=== PATIENT | male | born 1990 | race Two or more races ===

== ENCOUNTER 2017-09-20 23:11 | Emergency (ER) | payer MEDICARE, MEDICAID ==
[~2017-09-20] VITALS: Ht 157.5 cm; Wt 49.5 kg
[~2017-09-20 23:11] MED LIST: CITA10TA9 PO; OXYB5TAB82 PO; TOP25T PO
[2017-09-21] MEDS ORDERED: normal saline 1000ML IV soln IVB ONE (00:25)
[2017-09-21] MEDS ORDERED: metoclopramide 5 mg/ml inj IV ONE (00:25)
[2017-09-21 02:08] VITALS: BP 101/63
== END 2017-09-21 02:37 | disposition home or self-care (01) ==
LOC: ER 23:11
DX: R51 Headache (principal); R11.10 Vomiting, unspecified; H53.8 Other visual disturbances; Z98.2 Presence of cerebrospinal fluid drainage device; Z98.890 Other specified postprocedural states; Z88.6 Allergy status to analgesic agent; Z91.040 Latex allergy status
CPT/HCPCS: 70450; 96361; 96374; 99284; J2765; J7030

== ENCOUNTER 2018-11-27 10:32 | Emergency (ER) | payer MEDICARE, MEDICAID ==
[~2018-11-27] VITALS: Ht 157.5 cm; Wt 50.0 kg
[2018-11-27] MEDS ORDERED: proCHLORperazine 10 MG/2 ml inj IV ONE (14:15)
[2018-11-27] MEDS ORDERED: normal saline 1000ML IV soln IVB ONE (14:15)
[2018-11-27] MEDS ORDERED: LORazepam 2 mg/ml vial IV ONE (14:15)
[2018-11-27] MEDS ORDERED: ondansetron/PF 4mg/2ml inj IV ONE (14:15)
[2018-11-27 14:40] LABS: BASOPHILS % (AUTO) 1.1 % (0-1); EOSINOPHILS # (AUTO) 0.2 X10'3 (0-0.9); EOSINOPHILS % (AUTO) 4.3 % (0-6); HEMATOCRIT 42.3 % (42.0-52.0); HEMOGLOBIN 13.5 g/dl (14.0-17.9); LYMPHOCYTES # (AUTO) 1.7 X10'3 (1.1-4.8); LYMPHOCYTES % (AUTO) 37.4 % (21-51); MEAN CORPUSCULAR HEMOGLOBIN 22.4 PG (27.0-31.0); MEAN CORPUSCULAR VOLUME 70.1 FL (78-98); MEAN PLATELET VOLUME 7.6 FL (7.4-10.4); MONOCYTES # (AUTO) 0.6 X10'3 (0-0.9); MONOCYTES % (AUTO) 12.3 % (2-12); NEUTROPHILS % (AUTO) 44.9 % (42-75); PLATELET COUNT 340 X10'3 (140-440); RED BLOOD COUNT 6.04 X10'6 (4.70-6.10); WHITE BLOOD COUNT 4.5 X10'3 (4.5-11.0)
[2018-11-27 15:01] LABS: ANISOCYTOSIS 2+; ELLIPTOCYTES 1+; HYPOCHROMASIA 2+; MICROCYTOSIS 2+; PLATELET ESTIMATE NORMAL
[2018-11-27 15:08] LABS: ALANINE AMINOTRANSFERASE 15 U/L (12-78); ALBUMIN 3.9 G/DL (3.4-5.0); ALBUMIN/GLOBULIN RATIO 0.9 (1.1-1.5); ALKALINE PHOSPHATASE 99 IU/L (46-116); ANION GAP 11 (8-16); ASPARTATE AMINO TRANSFERASE 16 U/L (10-37); BILIRUBIN,TOTAL 0.4 MG/DL (0.1-1.0); BLOOD UREA NITROGEN 13 MG/DL (7-18); BUN/CREATININE RATIO 22.4 (5.4-32.0); CALCIUM 9.3 MG/DL (8.5-10.1); CHLORIDE 106 MMOL/L (99-107); CREATININE 0.58 MG/DL (0.60-1.10); GLUCOSE 83 MG/DL (70-104); POTASSIUM 3.8 MMOL/L (3.5-5.1); SODIUM 142 MMOL/L (135-145); TOTAL CARBON DIOXIDE 25.3 MMOL/L (24-32); TOTAL PROTEIN 8.1 G/DL (6.4-8.2); eGFR > 90 ML/MIN
[2018-11-27 15:11] LABS: ACETAMINOPHEN < 2.0 UG/ML (10-30)
[2018-11-27 17:03] LABS: URINE AMPHETAMINE SCREEN NEGATIVE (Neg); URINE BARBITUATE SCREEN NEGATIVE (Neg); URINE BENZODIAZEPINES SCREEN NEGATIVE (Neg); URINE CANNABINOID SCREEN NEGATIVE (Neg); URINE COCAINE SCREEN NEGATIVE (Neg); URINE METHADONE SCREEN NEGATIVE (Neg); URINE OPIATE SCREEN POSITIVE (Neg); URINE PHENCYCLIDINE SCREEN NEGATIVE (Neg)
[2018-11-27] MEDS ORDERED: TRAM50TA2 PO (18:28)
[2018-11-27] MEDS ORDERED: ONDA4TAB6 PO (18:28)
[2018-11-27 20:15] VITALS: BP 118/76
== END 2018-11-27 20:18 | disposition home or self-care (01) ==
LOC: ER 10:33
DX: R51 Headache (principal); Z88.6 Allergy status to analgesic agent; Z91.040 Latex allergy status
CPT/HCPCS: 36415; 70450; 80053; 80305; 80329; 85025; 96374; 96375; 99284; J0780; J2060; J2405

== ENCOUNTER 2019-09-23 10:00 | Emergency (ER) | payer MEDICARE, MEDICAID ==
[~2019-09-23] VITALS: Ht 152.4 cm; Wt 47.4 kg
[~2019-09-23 10:00] MED LIST changes: +ONDA4TAB6 PO
[2019-09-23] MEDS ORDERED: ketorolac tromethamine 15mg/ml inj. IV ONE (11:25)
[2019-09-23] MEDS ORDERED: proCHLORperazine 10 MG/2 ml inj IV ONE (11:25)
[2019-09-23] MEDS ORDERED: diphenhydrAMINE 50 mg/ml inj IV ONE (11:25)
[2019-09-23] MEDS ORDERED: normal saline 1000ml 1,000 ML IV ONE (11:25)
[2019-09-23 14:47] VITALS: BP 105/60
== END 2019-09-23 14:48 | disposition home or self-care (01) ==
LOC: ER 10:01
DX: R51 Headache (principal); M54.2 Cervicalgia; H53.149 Visual discomfort, unspecified; Z98.890 Other specified postprocedural states; Z88.6 Allergy status to analgesic agent; Z88.5 Allergy status to narcotic agent; Z91.040 Latex allergy status; Z79.899 Other long term (current) drug therapy
CPT/HCPCS: 70450; 71045; 74018; 96374; 96375; 99284; J0780; J1200; J1885; J7030

== ENCOUNTER 2023-09-01 06:56 | Day surgery (SDC) | payer MEDICARE, MEDICAID ==
[2023-08-29 16:08] LABS: BASOPHILS # (AUTO) 0.1 X10'3 (0-0.2); EOSINOPHILS # (AUTO) 0.4 X10'3 (0-0.9); EOSINOPHILS % (AUTO) 5.9 % (0-6); HEMATOCRIT 38.6 % (42.0-52.0); HEMOGLOBIN 12.5 g/dl (14.0-17.9); LYMPHOCYTES % (AUTO) 29.7 % (21-51); MEAN CORPUSCULAR HEMOGLOBIN 24.8 PG (27.0-31.0); MEAN CORPUSCULAR HGB CONC 32.3 g/dL (33.0-36.5); MEAN CORPUSCULAR VOLUME 76.7 FL (78-98); MEAN PLATELET VOLUME 7.1 FL (7.4-10.4); MONOCYTES # (AUTO) 0.7 X10'3 (0-0.9); NEUTROPHILS # (AUTO) 3.5 X10'3 (1.8-7.7); NEUTROPHILS % (AUTO) 52.4 % (42-75); PLATELET COUNT 400 X10'3 (140-440); RED BLOOD COUNT 5.03 X10'6 (4.70-6.10); WHITE BLOOD COUNT 6.6 X10'3 (4.5-11.0)
[2023-08-29 16:22] LABS: ALANINE AMINOTRANSFERASE 29 U/L (12-78); ALBUMIN 3.8 G/DL (3.4-5.0); ALBUMIN/GLOBULIN RATIO 0.9 (1.1-1.5); ALKALINE PHOSPHATASE 117 IU/L (46-116); ANION GAP 9 (8-16); ASPARTATE AMINO TRANSFERASE 20 U/L (10-37); BILIRUBIN,TOTAL 0.2 MG/DL (0.1-1.0); BLOOD UREA NITROGEN 16 MG/DL (7-18); CHLORIDE 104 MMOL/L (99-107); GLUCOSE 88 MG/DL (70-104); POTASSIUM 3.7 MMOL/L (3.5-5.1); SODIUM 142 MMOL/L (135-145); TOTAL CARBON DIOXIDE 29.1 MMOL/L (24-32); TOTAL PROTEIN 8.2 G/DL (6.4-8.2); eCRCL 164 ML/MIN; eGFR > 90 ML/MIN
[~2023-09-01] VITALS: Ht 157.5 cm; Wt 98.0 kg
[2023-09-01] VITALS (8 sets, daily range): BP systolic 104–124; BP diastolic 47–90; PULSE 80–108; RESP 16–18; TEMP 98.1; O2SAT 98–100
[~2023-09-01 06:56] MED LIST changes: +CHOL20002 PO; -CITA10TA9 PO; +ERTA1VIA4 IV; +ESCI5TAB PO; +GABA300C PO; -ONDA4TAB6 PO; +OXYB5TAB16 PO; -OXYB5TAB82 PO; -TOP25T PO; +VANC1VIA38 IV; +cefazolin 2gm/D5W 100mL 100 ML IV ONE; +famotidine 20mg tablet PO ONE; +ringers solution, lacted 1,000 ML IV SCH
[2023-09-01] MEDS ORDERED: ondansetron/PF 4mg/2ml inj IV PRN (09:40)
[2023-09-01] MEDS ORDERED: labetalol 20mg/4ml (5mg/ml) syringe IV PRN (09:40)
[2023-09-01] MEDS ORDERED: morphine 4 MG/ML inj SYRINge IV PRN (09:40)
[2023-09-01] MEDS ORDERED: morphine 2 MG/ML inj. syringe IV PRN (09:40)
[2023-09-01] MEDS ORDERED: ringers solution, lacted 1,000 ML IV SCH (09:40)
[2023-09-01] MEDS ORDERED: sevoflurane 250ml liquid IH ONE (09:50)
[2023-09-01] MEDS ORDERED: dexamethasone sod phosphate 10mg/ml inj ONE (09:50)
[2023-09-01] MEDS ORDERED: fentaNYL/PF 50MCG/1 ML 2ML syringe ONE (10:03)
[2023-09-01] MEDS ORDERED: LIDOcaine 1%/PF 5ML 10 MG/ML VIAL ONE (10:04)
[2023-09-01] MEDS ORDERED: ondansetron/PF 4mg/2ml inj ONE (10:04)
[2023-09-01] MEDS ORDERED: midazolam 1 mg/ML 2ml injection ONE (10:04)
[2023-09-01] MEDS ORDERED: propofol inj 20 ML IV ONE (10:05)
[2023-09-01] MEDS ORDERED: HYDROcodone/acetaminophen 10/325mg tab PO PRN (10:05)
== END 2023-09-01 12:38 | disposition home or self-care (01) ==
LOC: PAS 06:56
PROVIDERS: ATTEND Orthopaedic Surgery
DX: T81.31XA Disruption of external operation (surgical) wound, not elsewhere classified, initial encounter (principal); L98.419 Non-pressure chronic ulcer of buttock with unspecified severity; Q65.02 Congenital dislocation of left hip, unilateral; G43.909 Migraine, unspecified, not intractable, without status migrainosus; G82.20 Paraplegia, unspecified; Z98.890 Other specified postprocedural states; Z79.899 Other long term (current) drug therapy; Z91.041 Radiographic dye allergy status; Y83.8 Other surgical procedures as the cause of abnormal reaction of the patient, or of later complication, without mention of misadventure at the time of the procedure; Y92.89 Other specified places as the place of occurrence of the external cause
CPT/HCPCS: 13160; 36415; 80053; 82948; 85025; J0690; J1100; J2250; J2270; J2405; J2704; J3010; J3490; J7030; J7120; Z7506; Z7508; Z7512; A4215; A4618; A6449; A6550; A7000